=== PATIENT | female | born 1985 | race American Indian/Alaskan Native ===

== ENCOUNTER 2016-12-14 03:36 | Inpatient (IN) | payer MEDICAID ==
[2016-12-14] MEDS ORDERED: PITOCin/NS 20 UNIT/1000ML DRIP 20,000 MILLIUNITS/1,000 ML BAG IV ONE (04:10)
--- NOTE | 2016-12-14 04:34 | History and Physical Report ---
History of Present Illness Date of examination: 12/14/16 Date of admission: 12/14/16 03:41 Chief complaint: Painful contractions History of present illness: 31-year-old 002 at 40+1 weeks presents in active labor, she is a [facility] patient and is currently 8 cm dilated. course has been unremarkable. 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 denies: smoking, alcohol abuse, prescription drug abuse, IV drug use - Obstetrical History Expected Date of Delivery: 12/13/16 Actual Gestation: 40 Week(s) 1 Day(s) : 5 Para: 2 Medications and Allergies Allergies Allergy/AdvReac Type Severity Reaction Status Date / Time No Known Allergies Allergy Verified 06/14/13 05:54 Home Medications Medication Instructions Recorded Confirmed Last Taken Type Docusate Sodium [Colace] 100 mg PO BID #60 capsule 06/15/13 Unknown Rx Ferrous Sulfate [Feosol 325 MG tab] 325 mg PO BID #60 tablet 06/15/13 Unknown Rx Vit-Fe Fumar-FA [ 1 each PO ONCE #30 tablet 06/15/13 Unknown Rx Vitamin] Review of Systems Constitutional: no fever, no chills Cardiovascular: no chest pain, no syncope, no lightheadedness, no shortness of breath, no dyspnea on exertion, no high blood pressure Respiratory: no cough, no cough with sputum, no shortness of breath, no dyspnea on exertion Gastrointestinal: abdominal pain (regular painful contractions), no nausea, no vomiting, no diarrhea, no heartburn Genitourinary: leakage of fluid, contractions, no vaginal bleeding, no vaginal discharge - Vital Signs Vital signs: Vital Signs Temp 97.5 F L 12/14/16 04:17 Temp Pulse Resp BP Pulse Ox 97.5 F L 12/14/16 04:17 - Physical Exam Abdomen: Positive: normal appearance, soft. Negative: distention, tenderness, guarding, rigidity Uterus: Positive: enlarged (EFW ~ 3200, s/p Growth 2 wks ago with EFW ~ 2900) Extremities: Positive: normal - Obstetrical FHR: category 1 Cervical Dilatation: 8 station: -1 Results All other labs normal. Assessment and Plan A: 31-year-old 002 at 40+1 weeks in active labor -Cat 1 tracing P: -Admit -Routine labs -Expectant management -Anticipate normal vaginal delivery - Patient Problems (1) 40 weeks gestation of Current Visit: Yes Status: Acute (2) Active labor at term Current Visit: Yes Status: Acute
[2016-12-14] MEDS ORDERED: BRETHINE SUB-Q PRN (04:50)
[2016-12-14] MEDS ORDERED: MINERAL OIL PO PRN (04:50)
[2016-12-14] MEDS ORDERED: ePHEDrine SULFATE IV PRN (04:50)
[2016-12-14] MEDS ORDERED: BRETHINE IVP PRN (04:50)
[2016-12-14] MEDS ORDERED: XYLOCAINE 2% INFILTRATI ONE (04:50)
[2016-12-14] MEDS ORDERED: LACTATED RINGERS 1,000 ML IV SCH (05:00)
[2016-12-14] MEDS ORDERED: PITOCin/NS 20 UNIT/1000ML DRIP 20 UNITS/1,000 ML BAG IV SCH ×2 (05:00→08:00)
[2016-12-14 05:36] LABS: Hematocrit 32.1 % (30.3-42.9); Hemoglobin 10.3 gm/dl (10.1-14.3); Mean Corpuscular HGB Conc 32 % (30-34); Mean Corpuscular Hemoglobin 28 pg (28-32); Mean Corpuscular Volume 89 fl (79-97); Platelet Count 257 K/mm3 (140-440); Red Cell Distribution Width 15.3 % (13.2-15.2)
[2016-12-14] MEDS ORDERED: SUBLIMAZE ONE (06:48)
[2016-12-14] MEDS ORDERED: PHENERGAN PR PRN (07:02)
[2016-12-14] MEDS ORDERED: DULCOLAX PR PRN (07:02)
[2016-12-14] MEDS ORDERED: ZOFRAN IV PRN (07:02)
[2016-12-14] MEDS ORDERED: TUCKS PAD TP PRN (07:02)
[2016-12-14] MEDS ORDERED: DERMOPLAST TP PRN (07:02)
[2016-12-14] MEDS ORDERED: BENADRYL PO PRN (07:02)
[2016-12-14] MEDS ORDERED: PHENERGAN PO PRN (07:02)
[2016-12-14] MEDS ORDERED: LANSINOH TP PRN (07:02)
[2016-12-14] MEDS ORDERED: TYLENOL PO PRN (07:02)
[2016-12-14] MEDS ORDERED: MILK OF MAGNESIA PO PRN (07:02)
[2016-12-14] MEDS ORDERED: ANUCORT-HC PR PRN (07:02)
--- NOTE | 2016-12-14 07:02 | Procedure Note ---
OB Delivery Note - Delivery Date of Delivery: 12/14/16 Surgeon: BABAK BROCK Estimated blood loss: 300cc - Vaginal Delivery presentation: vertex Delivery position: OA Intrapartum events: meconium Delivery induction: none Delivery monitor: external FHT, external uterine Route of delivery: Delivery placenta: spontaneous Delivery cord: 3 umbilical vessels Episiotomy: none Delivery laceration: none Anesthesia: none - Infant A at 1 minute: 8 at 5 minutes: 9 Gender: Female (Del @ 06:34, weight is 6#15 or 3136 g)
[2016-12-14] MEDS ORDERED: SUBLIMAZE IV ONE (07:19)
[2016-12-14] MEDS ORDERED: SODIUM CHLORIDE FLUSH SYRINGE 10 ML IV NR (08:00)
[2016-12-14] MEDS ORDERED: SENOKOT S PO SCH (08:00)
[2016-12-14] MEDS: PRENATAL VITAMIN PO SCH (12:10)
[2016-12-14] MEDS: MOTRIN PO SCH ×2 (12:10→17:48)
[2016-12-14] MEDS: FEOSOL PO SCH (12:10)
[2016-12-14] MEDS: COLACE PO SCH ×2 (12:10→22:29)
[2016-12-14] MEDS: NORCO 5/325 PO PRN (14:55)
[2016-12-14 18:46] LABS: Hematocrit 28.9 % (30.3-42.9); Hemoglobin 9.2 gm/dl (10.1-14.3)
[2016-12-15] MEDS: MOTRIN PO SCH ×4 (00:15→23:52)
[2016-12-15] MEDS: NORCO 5/325 PO PRN ×3 (00:59→15:19)
[2016-12-15] MEDS: COLACE PO SCH ×2 (09:43→21:17)
[2016-12-15] MEDS: FEOSOL PO SCH ×2 (09:44→21:17)
[2016-12-15] MEDS: PRENATAL VITAMIN PO SCH (09:44)
--- NOTE | 2016-12-15 10:57 | Progress Note ---
Assessment and Plan - Patient Problems (1) (normal spontaneous vaginal delivery) Onset Date: 12/15/16 Current Visit: Yes Status: Resolved Plan to address problem: A: S/P - PPD #1 Doing well Asymptomatic anemia P: May go home tomorrow Subjective - Subjective Date of service: 12/15/16 Principal diagnosis: s/p - PPD #1 Interval history: Pt is feeling well without complaints. Bleeding has improved. Patient reports: appetite normal, voiding normally, pain well controlled, ambulating normally : doing well, nursing well Objective - Vital Signs Latest vital signs: Vital Signs Temp Pulse Pulse Resp BP 12/15/16 09:44 18 12/15/16 07:50 98.1 F 59 L 18 132/77 12/15/16 04:00 98.6 F 64 16 111/58 12/14/16 19:45 98.6 F 67 16 128/72 12/14/16 16:28 98.4 F 61 16 124/77 12/14/16 12:53 98.3 F 72 18 115/62 Intake and Output 12/14/16 12/15/16 12/15/16 22:59 06:59 14:59 Intake Total 1650 700 120 Output Total 800 Balance 850 700 120 Intake: Oral 1150 300 120 Intake, Free Water 500 400 Output: Urine 800 Void 800 Other: Total, Intake Amount 400 300 120 Total, Output Amount 600 Voiding Method Toilet # Voids Void 1 1 - Exam Breasts: Present: deferred Cardiovascular: Present: Regular rate Lungs: Present: Clear to auscultation Abdomen: Present: normal appearance, soft Uterus: Present: normal, firm, fundal height below umbilicus Extremities: Present: normal - Labs Labs: Abnormal lab results 12/14/16 Range/Units 18:36 Hgb 9.2 L (10.1-14.3) gm/dl Hct 28.9 L (30.3-42.9) % Laboratory Tests 12/14/16 12/14/16 12/14/16 03:58 03:58 18:36 WBC 10.0 RBC 3.60 L Hgb 10.3 9.2 L Hct 32.1 28.9 L MCV 89 MCH 28 MCHC 32 RDW 15.3 H Plt Count 257 Blood Type O POSITIVE Antibody Screen Negative
--- NOTE | 2016-12-15 11:00 | Discharge Summary ---
Providers - Providers Date of Admission: 12/14/16 03:41 Date of discharge: 12/16/16 Attending physician: BABAK BROCK Primary care physician: BABAK BROCK Hospitalization Reason for admission: active labor, IUP at term Delivery: Episiotomy: none Laceration: none Other procedures: none complications: none Discharge diagnosis: IUP at term delivered Igo baby: female Hospital course: Unremarkable. Condition at discharge: Good Disposition: DISCHARGED TO HOME OR SELFCARE - Discharge Diagnoses (1) (normal spontaneous vaginal delivery) Status: Resolved Plan - Discharge Medications Prescriptions: HYDROcodone/APAP 5-325 [[place] 5/325] 1 each PO Q6HR PRN #10 tablet PRN Reason: Pain Ibuprofen [Motrin 600 MG tab] 600 mg PO Q8H PRN #30 tablet PRN Reason: Pain Multivitamin with Iron [Multivitamins with Iron] 1 each PO DAILY #30 tablet - Provider Discharge Summary Activity: routine, no sex for 6 weeks, no heavy lifting 4 weeks, no strenuous exercise Diet: routine Instructions: routine Additional instructions: [] Smoking cessation referral if applicable(refer to patient education folder for contact #) [] Refer to [facility]'s [facility] Booklet Call your doctor immediately for: * Fever > 100.5 * Heavy vaginal bleeding ( >1 pad per hour) * Severe persistent headache * Shortness of breath * Reddened, hot, painful area to leg or breast * Drainage or odor from incision. * Keep incision clean and dry at all times and follow doctor's instructions regarding bathing/showering - Follow up plan Follow up: BABAK BROCK MD [Primary Care Provider] - 6 Weeks
[2016-12-16] MEDS: MOTRIN PO SCH (06:01)
[2016-12-16 09:18] VITALS: BP 140/74
== END 2016-12-16 10:30 | disposition home or self-care (01) | DRG 775 ==
LOC: TRG 03:36 → LD 03:41 → OB 08:45
PROVIDERS: ADMIT Obstetrics & Gynecology Gynecology; ATTEND Obstetrics & Gynecology Gynecology
PROC: 10E0XZZ Delivery of Products of Conception, External Approach (ICD-10-PCS; principal; 2016-12-14)
DX: O77.0 Labor and delivery complicated by meconium in amniotic fluid (principal); O90.81 Anemia of the puerperium; D64.9 Anemia, unspecified; Z37.0 Single live birth; Z3A.40 40 weeks gestation of pregnancy
CPT/HCPCS: 36415; 85014; 85018; 85027; 86850; 86900; 86901; 99211; G0463; J2590; J3010